=== PATIENT | male | born 1970 | race American Indian/Alaskan Native ===

== ENCOUNTER 2017-12-25 06:50 | Emergency (ER) | payer OTHER ==
[2017-12-25] MEDS ORDERED: VERSED IV NR (07:00)
[2017-12-25] MEDS ORDERED: QUELICIN IV ONE (07:00)
[2017-12-25] MEDS ORDERED: DIPRIVAN 10 MG/ML 1,000 MG/100 ML BOTTLE IV ONE (07:07)
[2017-12-25] MEDS ORDERED: VASELINE LIP THERAPY TP PRN (07:10)
[2017-12-25] MEDS ORDERED: ARTIFICIAL TEARS OPHTH OINT OU PRN (07:10)
--- NOTE | 2017-12-25 07:12 | Emergency Department Report ---
ED Altered Mental Status HPI - General Stated Complaint: N/V Time Seen by Provider: 12/25/17 06:50 Source: EMS Limitations: Altered Mental Status - History of Present Illness Initial Comments: Patient 47-year-old male that originally presented to the emergency room for nausea and vomiting. After arrival by EMS prior to being put in a room patient became unresponsive. Patient was taken to room 22 and intubated. Per EMS complaints the patient had were nausea and vomiting and dizziness. MD Complaint: altered mental status, decreased responsiveness -: Sudden Severity: severe Consistency of Symptoms: constant Associated Symptoms: nausea/vomiting, other (dizziness) Treatments Prior to Arrival: oxygen - Related Data Allergies Allergy/AdvReac Type Severity Reaction Status Date / Time No Known Allergies Allergy Unverified 12/25/17 06:59 ED Review of Systems ROS: Stated complaint: N/V Other details as noted in HPI Comment: Unobtainable due to pts medical conditions ED Past Medical Hx - Past Medical History Previous Medical History?: Yes Hx Hypertension: Yes - Surgical History Past Surgical History?: No - Family History Family history: no significant - Social History Smoking Status: Unknown if ever smoked Substance Use Type: None ED Physical Exam - General Limitations: Altered Mental Status General appearance: lethargic - Head Head exam: Present: atraumatic, normocephalic - Eye Eye exam: Present: normal appearance, PERRL Pupils: Present: normal accommodation - ENT ENT exam: Present: mucous membranes dry - Neck Neck exam: Present: normal inspection - Respiratory Respiratory exam: Present: normal lung sounds bilaterally. Absent: respiratory distress - Cardiovascular Cardiovascular Exam: Present: regular rate, normal rhythm. Absent: systolic murmur, diastolic murmur, rubs, gallop - GI/Abdominal GI/Abdominal exam: Present: soft, normal bowel sounds - Rectal Rectal exam: Present: deferred - Extremities Exam Extremities exam: Present: normal inspection - Back Exam Back exam: Present: normal inspection - Neurological Exam Neurological exam: Present: altered - Skin Skin exam: Present: warm, dry, intact, normal color. Absent: rash - Assessment Assessment Interval: Baseline - Level of Consciousness 1a. Level of Consciousness: responds reflex/autonomic - LOC Questions 1b. LOC Questions: answers no questions correctly - LOC Command 1c. LOC Commands: performs no tasks correctly - Best Gaze 2. Best Gaze: forced deviation - Visual 3. Visual: bilateral hemianopia - Facial Palsy 4. Facial Palsy: complete paralysis - Motor Arm 5b. Motor Arm Right: no movement 5a. Motor Arm Left: no movement - Motor Leg 6a. Motor Leg Left: no movement 6b. Motor Leg Right: no movement - Limb Ataxia 7. Limb Ataxia: absent - Sensory 8. Sensory: severe/total sensory loss - Best Language 9. Best Language: mute/global aphasia - Dysarthria 10. Dysarthria: intubated or other barrier - Extinction and Inattention 11. Extinction/Inattention: profound inattention (no score calculated but is high score.) ED Course Vital Signs 12/25/17 12/25/17 12/25/17 06:50 06:52 07:00 Pulse Rate 40 L 48 L 128 H Respiratory 16 40 H Rate Blood Pressure 167/93 165/82 O2 Sat by Pulse 100 100 Oximetry 12/25/17 12/25/17 12/25/17 07:10 07:16 07:35 Pulse Rate 89 80 83 Respiratory 17 17 Rate Blood Pressure 64/37 115/73 O2 Sat by Pulse 98 98 99 Oximetry 12/25/17 12/25/17 12/25/17 07:45 08:09 08:15 Pulse Rate 85 82 74 Respiratory 18 15 16 Rate Blood Pressure 122/75 140/91 108/72 O2 Sat by Pulse 100 100 100 Oximetry 12/25/17 12/25/17 12/25/17 08:30 08:45 09:00 Pulse Rate 74 81 77 Respiratory 18 22 9 L Rate Blood Pressure 121/79 157/100 166/101 O2 Sat by Pulse 100 100 100 Oximetry 12/25/17 12/25/17 12/25/17 09:15 09:30 09:45 Pulse Rate 72 67 58 L Respiratory 22 22 22 Rate Blood Pressure 129/88 126/85 130/82 O2 Sat by Pulse 100 100 100 Oximetry 12/25/17 12/25/17 12/25/17 10:00 10:31 10:45 Pulse Rate 55 L 71 61 Respiratory 22 Rate Blood Pressure 134/85 139/84 O2 Sat by Pulse 100 100 Oximetry 12/25/17 12/25/17 12/25/17 11:00 11:15 11:30 Pulse Rate 53 L 53 L 54 L Respiratory 19 22 Rate Blood Pressure 130/80 130/82 127/82 O2 Sat by Pulse 100 100 100 Oximetry 12/25/17 12/25/17 12/25/17 11:45 12:00 12:15 Pulse Rate 54 L 53 L 52 L Respiratory 22 22 22 Rate Blood Pressure 127/83 126/81 126/82 O2 Sat by Pulse 100 100 100 Oximetry 12/25/17 12/25/17 12/25/17 12:30 12:45 13:17 Pulse Rate 52 L 51 L 55 L Respiratory 22 22 22 Rate Blood Pressure 132/84 130/85 138/90 O2 Sat by Pulse 100 100 100 Oximetry 12/25/17 12/25/17 12/25/17 13:30 13:45 14:00 Pulse Rate 54 L 54 L 56 L Respiratory 22 22 21 Rate Blood Pressure 132/86 121/80 123/87 O2 Sat by Pulse 100 100 100 Oximetry - Reevaluation(s) Reevaluation #1: Patient noted to be hypoxic and not responsive. Patient not responding to painful stimuli. We'll intubate patient to protect airway. 12/25/17 06:50 Reevaluation #2: Patient noted to be hypotensive. We'll start bolus of fluid and Levothroid drip 12/25/17 07:20 Reevaluation #3: Discussed case with Dr. Sebastian an EKG sent to him, he states this is not a STEMI. 12/25/17 07:22 Reevaluation #4: Patient is stable at this time on a ventilator. Blood pressure is better and is currently on Levophed drip. Lactic acid elevated, we'll give the patient antibiotics and boluses of fluid 12/25/17 08:31 Patient's blood pressure improving. Patient's heart rate is improving. Patient is intubated. we'll start neurovascular workup. Will order CTA scan 0900 - Consultations Consultation #1: [place] neurosurgeon consulted along with neuro ICU and stroke team. 12/25/17 11:[address] Mckinney. Dr. Mckinney was going to review images and give us a call back. 12/25/17 12:36 Dr. Mckinney wants another CT of brain to verify if the patient has infarct his brainstem 12/25/17 12:58 Dr Mckinney accepted patient. Patient to be transferred to [facility] for thrombectomy. [facility] is sending the helicopter to pick patient up. 08/16/18 13:41 - Intubation Time Out Performed: Yes Sedative: Etomidate Paralytic: Succinylcholine Laryngoscope: fiberoptic video scope Size: 4 Assist Device Used: fiberoptic device ET Tube Size: 7.5 Tube Secured Depth (cm): 24 Tube Secured Location: teeth Tube Placement Confirmation: visualized tube passing t, equal breath sounds bilat, no breath sounds over epi, confirmation by capnometr Patient Tolerated Procedure: well Intubation Complications: none - Lab Data Result diagrams: 12/25/17 07:10 12/25/17 07:16 Lab Results 12/25/17 12/25/17 12/25/17 Range/Units 07:10 07:10 07:10 WBC 12.0 H (4.5-11.0) K/mm3 RBC 5.01 (3.65-5.03) M/mm3 Hgb 13.7 (11.8-15.2) gm/dl Hct 43.6 (35.5-45.6) % MCV 87 (84-94) fl MCH 27 L (28-32) pg MCHC 32 (32-34) % RDW 13.7 (13.2-15.2) % Plt Count 263 (140-440) K/mm3 Lymph % (Auto) 23.7 (13.4-35.0) % Russell % (Auto) 6.4 (0.0-7.3) % Eos % (Auto) 0.6 (0.0-4.3) % Baso % (Auto) 0.3 (0.0-1.8) % Lymph # 2.8 (1.2-5.4) K/mm3 Russell # 0.8 (0.0-0.8) K/mm3 Eos # 0.1 (0.0-0.4) K/mm3 Baso # 0.0 (0.0-0.1) K/mm3 Seg Neutrophils % 69.0 (40.0-70.0) % Seg Neutrophils # 8.3 H (1.8-7.7) K/mm3 PT 13.3 (12.2-14.9) Sec. INR 0.96 (0.87-1.13) APTT 22.6 L (24.2-36.6) Sec. Thrombin Time (15.1-19.6) Sec. POC ABG pH (7.35-7.45) POC ABG pCO2 (35-45) POC ABG pO2 (80-105) POC ABG HCO3 POC ABG Total CO2 POC ABG O2 Sat POC ABG Base Excess FiO2 % Sodium (137-145) mmol/L Potassium (3.6-5.0) mmol/L Chloride (98-107) mmol/L Carbon Dioxide (22-30) mmol/L Anion Gap mmol/L BUN (9-20) mg/dL Creatinine (0.8-1.5) mg/dL Estimated GFR ml/min BUN/Creatinine Ratio % Glucose (75-100) mg/dL Lactic Acid (0.7-2.0) mmol/L Calcium (8.4-10.2) mg/dL Total Bilirubin (0.1-1.2) mg/dL AST (5-40) units/L ALT (7-56) units/L Alkaline Phosphatase (35-129) units/L Troponin T (0.00-0.029) ng/mL Total Protein (6.3-8.2) g/dL Albumin (3.9-5) g/dL Albumin/Globulin Ratio % TSH (0.270-4.200) mlU/mL Urine Color (Yellow) Urine Turbidity (Clear) Urine pH (5.0-7.0) Ur Specific [place] (1.003-1.030) Urine Protein (Negative) mg/dL Urine Glucose (UA) (Negative) mg/dL Urine Ketones (Negative) mg/dL Urine Blood (Negative) Urine Nitrite (Negative) Urine Bilirubin (Negative) Urine Urobilinogen (<2.0) mg/dL Ur Leukocyte Esterase (Negative) Urine WBC (Auto) (0.0-6.0) /HPF Urine RBC (Auto) (0.0-6.0) /HPF U Epithel Cells (Auto) (0-13.0) /HPF Urine Bacteria (Auto) (Negative) /HPF Granular Casts /LPF Urine Mucus /HPF Urine Opiates Screen Urine Methadone Screen Ur Barbiturates Screen Ur Phencyclidine Scrn Ur Amphetamines Screen U Benzodiazepines Scrn Urine Cocaine Screen U Marijuana (THC) Screen Drugs of Abuse Note Plasma/Serum Alcohol < 0.01 (0-0.07) % 12/25/17 12/25/17 12/25/17 Range/Units 07:10 07:10 07:15 WBC (4.5-11.0) K/mm3 RBC (3.65-5.03) M/mm3 Hgb (11.8-15.2) gm/dl Hct (35.5-45.6) % MCV (84-94) fl MCH (28-32) pg MCHC (32-34) % RDW (13.2-15.2) % Plt Count (140-440) K/mm3 Lymph % (Auto) (13.4-35.0) % Russell % (Auto) (0.0-7.3) % Eos % (Auto) (0.0-4.3) % Baso % (Auto) (0.0-1.8) % Lymph # (1.2-5.4) K/mm3 Russell # (0.0-0.8) K/mm3 Eos # (0.0-0.4) K/mm3 Baso # (0.0-0.1) K/mm3 Seg Neutrophils % (40.0-70.0) % Seg Neutrophils # (1.8-7.7) K/mm3 PT (12.2-14.9) Sec. INR (0.87-1.13) APTT (24.2-36.6) Sec. Thrombin Time 16.8 (15.1-19.6) Sec. POC ABG pH (7.35-7.45) POC ABG pCO2 (35-45) POC ABG pO2 (80-105) POC ABG HCO3 POC ABG Total CO2 POC ABG O2 Sat POC ABG Base Excess FiO2 % Sodium (137-145) mmol/L Potassium (3.6-5.0) mmol/L Chloride (98-107) mmol/L Carbon Dioxide (22-30) mmol/L Anion Gap mmol/L BUN (9-20) mg/dL Creatinine (0.8-1.5) mg/dL Estimated GFR ml/min BUN/Creatinine Ratio % Glucose (75-100) mg/dL Lactic Acid 6.80 H* (0.7-2.0) mmol/L Calcium (8.4-10.2) mg/dL Total Bilirubin (0.1-1.2) mg/dL AST (5-40) units/L ALT (7-56) units/L Alkaline Phosphatase (35-129) units/L Troponin T (0.00-0.029) ng/mL Total Protein (6.3-8.2) g/dL Albumin (3.9-5) g/dL Albumin/Globulin Ratio % TSH 1.090 (0.270-4.200) mlU/mL Urine Color (Yellow) Urine Turbidity (Clear) Urine pH (5.0-7.0) Ur Specific [place] (1.003-1.030) Urine Protein (Negative) mg/dL Urine Glucose (UA) (Negative) mg/dL Urine Ketones (Negative) mg/dL Urine Blood (Negative) Urine Nitrite (Negative) Urine Bilirubin (Negative) Urine Urobilinogen (<2.0) mg/dL Ur Leukocyte Esterase (Negative) Urine WBC (Auto) (0.0-6.0) /HPF Urine RBC (Auto) (0.0-6.0) /HPF U Epithel Cells (Auto) (0-13.0) /HPF Urine Bacteria (Auto) (Negative) /HPF Granular Casts /LPF Urine Mucus /HPF Urine Opiates Screen Urine Methadone Screen Ur Barbiturates Screen Ur Phencyclidine Scrn Ur Amphetamines Screen U Benzodiazepines Scrn Urine Cocaine Screen U Marijuana (THC) Screen Drugs of Abuse Note Plasma/Serum Alcohol (0-0.07) % 12/25/17 12/25/17 12/25/17 Range/Units 07:16 07:58 07:58 WBC (4.5-11.0) K/mm3 RBC (3.65-5.03) M/mm3 Hgb (11.8-15.2) gm/dl Hct (35.5-45.6) % MCV (84-94) fl MCH (28-32) pg MCHC (32-34) % RDW (13.2-15.2) % Plt Count (140-440) K/mm3 Lymph % (Auto) (13.4-35.0) % Russell % (Auto) (0.0-7.3) % Eos % (Auto) (0.0-4.3) % Baso % (Auto) (0.0-1.8) % Lymph # (1.2-5.4) K/mm3 Russell # (0.0-0.8) K/mm3 Eos # (0.0-0.4) K/mm3 Baso # (0.0-0.1) K/mm3 Seg Neutrophils % (40.0-70.0) % Seg Neutrophils # (1.8-7.7) K/mm3 PT (12.2-14.9) Sec. INR (0.87-1.13) APTT (24.2-36.6) Sec. Thrombin Time (15.1-19.6) Sec. POC ABG pH (7.35-7.45) POC ABG pCO2 (35-45) POC ABG pO2 (80-105) POC ABG HCO3 POC ABG Total CO2 POC ABG O2 Sat POC ABG Base Excess FiO2 % Sodium 138 (137-145) mmol/L Potassium 4.1 (3.6-5.0) mmol/L Chloride 105.1 (98-107) mmol/L Carbon Dioxide 17 L (22-30) mmol/L Anion Gap 20 mmol/L BUN 20 (9-20) mg/dL Creatinine 1.3 (0.8-1.5) mg/dL Estimated GFR > 60 ml/min BUN/Creatinine Ratio 15 % Glucose 269 H (75-100) mg/dL Lactic Acid (0.7-2.0) mmol/L Calcium 8.9 (8.4-10.2) mg/dL Total Bilirubin 0.60 (0.1-1.2) mg/dL AST 23 (5-40) units/L ALT 15 (7-56) units/L Alkaline Phosphatase 78 (35-129) units/L Troponin T < 0.010 (0.00-0.029) ng/mL Total Protein 7.2 (6.3-8.2) g/dL Albumin 4.2 (3.9-5) g/dL Albumin/Globulin Ratio 1.4 % TSH (0.270-4.200) mlU/mL Urine Color Yellow (Yellow) Urine Turbidity Slightly-cloudy (Clear) Urine pH 5.0 (5.0-7.0) Ur Specific [place] 1.021 (1.003-1.030) Urine Protein 100 mg/dl (Negative) mg/dL Urine Glucose (UA) Neg (Negative) mg/dL Urine Ketones Neg (Negative) mg/dL Urine Blood Sm (Negative) Urine Nitrite Neg (Negative) Urine Bilirubin Neg (Negative) Urine Urobilinogen 4.0 (<2.0) mg/dL Ur Leukocyte Esterase Neg (Negative) Urine WBC (Auto) 6.0 (0.0-6.0) /HPF Urine RBC (Auto) 10.0 (0.0-6.0) /HPF U Epithel Cells (Auto) 1.0 (0-13.0) /HPF Urine Bacteria (Auto) 2+ (Negative) /HPF Granular Casts 3 /LPF Urine Mucus 2+ /HPF Urine Opiates Screen Presumptive negative Urine Methadone Screen Presumptive negative Ur Barbiturates Screen Presumptive negative Ur Phencyclidine Scrn Presumptive negative Ur Amphetamines Screen Presumptive negative U Benzodiazepines Scrn Presumptive positive Urine Cocaine Screen Presumptive negative U Marijuana (THC) Screen Presumptive negative Drugs of Abuse Note Disclamer Plasma/Serum Alcohol (0-0.07) % 12/25/17 12/25/17 Range/Units 08:06 08:19 WBC (4.5-11.0) K/mm3 RBC (3.65-5.03) M/mm3 Hgb (11.8-15.2) gm/dl Hct (35.5-45.6) % MCV (84-94) fl MCH (28-32) pg MCHC (32-34) % RDW (13.2-15.2) % Plt Count (140-440) K/mm3 Lymph % (Auto) (13.4-35.0) % Russell % (Auto) (0.0-7.3) % Eos % (Auto) (0.0-4.3) % Baso % (Auto) (0.0-1.8) % Lymph # (1.2-5.4) K/mm3 Russell # (0.0-0.8) K/mm3 Eos # (0.0-0.4) K/mm3 Baso # (0.0-0.1) K/mm3 Seg Neutrophils % (40.0-70.0) % Seg Neutrophils # (1.8-7.7) K/mm3 PT (12.2-14.9) Sec. INR (0.87-1.13) APTT (24.2-36.6) Sec. Thrombin Time (15.1-19.6) Sec. POC ABG pH 7.208 L (7.35-7.45) POC ABG pCO2 58.4 H (35-45) POC ABG pO2 225 H (80-105) POC ABG HCO3 23.2 POC ABG Total CO2 25 POC ABG O2 Sat 100 POC ABG Base Excess -5 FiO2 50 % Sodium (137-145) mmol/L Potassium (3.6-5.0) mmol/L Chloride (98-107) mmol/L Carbon Dioxide (22-30) mmol/L Anion Gap mmol/L BUN (9-20) mg/dL Creatinine (0.8-1.5) mg/dL Estimated GFR ml/min BUN/Creatinine Ratio % Glucose (75-100) mg/dL Lactic Acid 1.70 (0.7-2.0) mmol/L Calcium (8.4-10.2) mg/dL Total Bilirubin (0.1-1.2) mg/dL AST (5-40) units/L ALT (7-56) units/L Alkaline Phosphatase (35-129) units/L Troponin T (0.00-0.029) ng/mL Total Protein (6.3-8.2) g/dL Albumin (3.9-5) g/dL Albumin/Globulin Ratio % TSH (0.270-4.200) mlU/mL Urine Color (Yellow) Urine Turbidity (Clear) Urine pH (5.0-7.0) Ur Specific [place] (1.003-1.030) Urine Protein (Negative) mg/dL Urine Glucose (UA) (Negative) mg/dL Urine Ketones (Negative) mg/dL Urine Blood (Negative) Urine Nitrite (Negative) Urine Bilirubin (Negative) Urine Urobilinogen (<2.0) mg/dL Ur Leukocyte Esterase (Negative) Urine WBC (Auto) (0.0-6.0) /HPF Urine RBC (Auto) (0.0-6.0) /HPF U Epithel Cells (Auto) (0-13.0) /HPF Urine Bacteria (Auto) (Negative) /HPF Granular Casts /LPF Urine Mucus /HPF Urine Opiates Screen Urine Methadone Screen Ur Barbiturates Screen Ur Phencyclidine Scrn Ur Amphetamines Screen U Benzodiazepines Scrn Urine Cocaine Screen U Marijuana (THC) Screen Drugs of Abuse Note Plasma/Serum Alcohol (0-0.07) % - EKG Data -: EKG Interpreted by Me EKG shows normal: sinus rhythm, axis, intervals, QRS complexes, ST-T waves Rate: bradycardia - Radiology Data Radiology results: report reviewed CT HEAD WITHOUT CONTRAST: HISTORY: Neurological deficit. TECHNIQUE: Sequential 2.5mm CT images. COMPARISON: none. FINDINGS: Cerebral Parenchyma: Within normal limits. Cerebellum: Within normal limits. Brainstem: Within normal limits. Ventricles: Normal. Sella: Normal. Extra-axial spaces: Normal. Basal Cisterns: Normal. Intracranial Hemorrhage: None. Midline Shift: None. Calvarium: Normal. Sinuses: Normal. Mastoid Air Cells: Normal. Visualized Orbits: Normal. IMPRESSION: Cranial CT scan within normal limits. These findings were discussed with Dr. Saunders in the emergency department at 0813 hours. Transcribed By: TTR Dictated By: AKHIL SHELL JR, MD Electronically Authenticated By: AKHIL SHELL JR, MD Signed Date/Time: 12/25/17 0813 CTA NECK: CTA HEAD: HISTORY: Altered mental status, unresponsive. TECHNIQUE: Helical CT following IV contrast. Sagittal and coronal reformatted images. 3D volume rendering technique. Stenosis was calculated using NASCET criteria. 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 The right vertebral artery is patent with less than 20% stenosis. The visualized aortic arch, innominate artery and proximal bilateral subclavian arteries are widely patent with less than 20% stenosis. Within the right carotid system: Less than 20% stenosis. Within the left carotid system: Less than 20% stenosis. The anterior cerebral arteries, middle cerebral arteries and posterior cerebral arteries are patent with less than 20% stenosis. No evidence for aneurysm. 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 Underlying left vertebral artery dissection with thrombosis is difficult to exclude. These findings were discussed with Dr. Saunders in the emergency department at 1130 hrs. Transcribed By: TTR Dictated By: AKHIL SHELL JR, MD Electronically Authenticated By: AKHIL SHELL JR, MD Signed Date/Time: 12/25/17 1146 EXAM: XR CHEST 1V AP HISTORY: neuro deficit COMPARISONS: None. FINDINGS: AP portable chest radiograph Endotracheal tube terminates approximately 7 cm from the fani. Enteric tube terminates in the left upper quadrant. No pneumothorax, effusion, or focal airspace disease. No acute skeletal finding. IMPRESSION: Satisfactory appearance of patient's support apparatus without pneumothorax. Transcribed By: MB Dictated By: STEPHANE ADAME MD Electronically Authenticated By: STEPHANE ADAME MD Signed Date/Time: 12/25/17 0721 - Medical Decision Making Patient is a 47-year-old male that presents emergency room with nausea and vomiting and dizziness. Upon arrival patient became unresponsive and hypotensive and hypoxia. Patient was intubated and stabilized with drips and fluids. The Levophed drip has since been turned off. Patient will be transferred to the neurovascular ICU and in the [facility]. - Differential Diagnosis cva. n/v dizziness. elect imbalance. hypoxia Critical Care Time: Yes Critical care attestation.: If time is entered above; I have spent that time in minutes in the direct care of this critically ill patient, excluding procedure time. Critical Care Time: 75 minutes for cc time ED Disposition Clinical Impression: Unresponsive, Hypoxia, Respiratory acidosis, Lactic acidosis CVA (cerebral vascular accident) Qualifiers: CVA mechanism: occlusion Precerebral and cerebral artery: basilar artery Qualified Code(s): I63.22 - Cerebral infarction due to unspecified occlusion or stenosis of basilar artery Respiratory failure Qualifiers: Chronicity: acute Respiratory failure complication: hypoxia Qualified Code(s): J96.01 - Acute respiratory failure with hypoxia Disposition: DC/TX-70 ANOTHER TYPE HLTHCARE Is pt being admited?: No Does the pt Need Aspirin: No Condition: Critical Time of Disposition: 13:51
[2017-12-25] MEDS ORDERED: LEVOPHED DRIP 4 MG/NS 250 ML 4 MG/250 ML BAG IV ONE (07:17)
[2017-12-25] MEDS ORDERED: NACL 0.9% 1000 ML 1,000 ML ONE (07:17)
[2017-12-25] MEDS ORDERED: NACL 0.9% 1000 ML 1,000 ML IV ONE ×2 (07:28→08:29)
[2017-12-25] MEDS ORDERED: LEVOPHED DRIP 4 MG/NS 250 ML 4 MG/250 ML BAG IV SCH (07:28)
--- NOTE | 2017-12-25 07:29 | XRay Report ---
FINAL REPORT EXAM: XR CHEST 1V AP HISTORY: neuro deficit COMPARISONS: None. FINDINGS: AP portable chest radiograph Endotracheal tube terminates approximately 7 cm from the fani. Enteric tube terminates in the left upper quadrant. No pneumothorax, effusion, or focal airspace disease. No acute skeletal finding. IMPRESSION: Satisfactory appearance of patient's support apparatus without pneumothorax.
--- NOTE | 2017-12-25 07:30 | XRay Report ---
FINAL REPORT EXAM: XR ABDOMEN 1V AP HISTORY: NG tube insertion COMPARISONS: Chest radiograph of the same date FINDINGS: AP portable upper abdominal radiograph Enteric tube terminates in the left upper quadrant with distal side port well below the gastroesophageal junction. No pneumoperitoneum. Partially imaged bowel gas pattern is nonobstructive. IMPRESSION: Nasogastric tube terminates in the region of the stomach with distal side port well below the gastroesophageal junction.
[2017-12-25] MEDS ORDERED: ASPIRIN PR ONE (07:34)
[2017-12-25 07:42] LABS: Basophils % (Auto) 0.3 % (0.0-1.8); Eosinophils # (Auto) 0.1 K/mm3 (0.0-0.4); Eosinophils % (Auto) 0.6 % (0.0-4.3); Hematocrit 43.6 % (35.5-45.6); Hemoglobin 13.7 gm/dl (11.8-15.2); Lymphocytes # (Auto) 2.8 K/mm3 (1.2-5.4); Lymphocytes % (Auto) 23.7 % (13.4-35.0); Mean Corpuscular HGB Conc 32 % (32-34); Mean Corpuscular Hemoglobin 27 pg (28-32); Mean Corpuscular Volume 87 fl (84-94); Monocytes # (Auto) 0.8 K/mm3 (0.0-0.8); Monocytes % (Auto) 6.4 % (0.0-7.3); Platelet Count 263 K/mm3 (140-440); Red Blood Count 5.01 M/mm3 (3.65-5.03); Red Cell Distribution Width 13.7 % (13.2-15.2)
[2017-12-25 07:57] LABS: Alanine Aminotransferase 15 units/L (7-56); Albumin 4.2 g/dL (3.9-5); BUN/Creatinine Ratio 15; Blood Urea Nitrogen 20 mg/dL (9-20); Calcium 8.9 mg/dL (8.4-10.2); Hemolysis Index 58
[2017-12-25 08:00] LABS: INR 0.96 (0.87-1.13); Partial Thromboplastin Time 22.6 Sec. (24.2-36.6)
[2017-12-25] MEDS ORDERED: NACL 0.9% 500 ML IV SCH (08:00)
[2017-12-25] MEDS ORDERED: DIPRIVAN 10 MG/ML 1,000 MG/100 ML BOTTLE IV SCH (08:00)
--- NOTE | 2017-12-25 08:19 | Cat Scan Report ---
CT HEAD WITHOUT CONTRAST: HISTORY: Neurological deficit. TECHNIQUE: Sequential 2.5mm CT images. COMPARISON: none. FINDINGS: Cerebral Parenchyma: Within normal limits. Cerebellum: Within normal limits. Brainstem: Within normal limits. Ventricles: Normal. Sella: Normal. Extra-axial spaces: Normal. Basal Cisterns: Normal. Intracranial Hemorrhage: None. Midline Shift: None. Calvarium: Normal. Sinuses: Normal. Mastoid Air Cells: Normal. Visualized Orbits: Normal. IMPRESSION: Cranial CT scan within normal limits. These findings were discussed with Dr. Saunders in the emergency department at 0813 hours.
[2017-12-25 08:39] LABS: Bacteria,Urine 2+ /HPF (Negative); Bilirubin,Urine NEG (Negative); Blood,Urine SM (Negative); Color,Urine Yellow (Yellow); Granular Casts,Urine 3 /LPF; Mucus,Urine 2+ /HPF
[2017-12-25 08:40] LABS: Amphetamine Screen,Urine PRESUMPTIVE NEGATIVE; Cannabinoid Screen,Urine PRESUMPTIVE NEGATIVE; Cocaine Screen,Urine PRESUMPTIVE NEGATIVE; Methadone Screen,Urine PRESUMPTIVE NEGATIVE; Opiate Screen,Urine PRESUMPTIVE NEGATIVE
[2017-12-25 08:54] LABS: Benzodiazepines Screen,Urine PRESUMPTIVE POSITIVE
[2017-12-25] MEDS ORDERED: ZOSYN/NS 3.375GM/50ML 3.375 GM/50 ML BAG IV ONE (09:00)
[2017-12-25] MEDS ORDERED: AMIDATE IV ONE (11:41)
[2017-12-25] MEDS ORDERED: QUELICIN ONE (11:41)
[2017-12-25] MEDS ORDERED: VERSED IV ONE (11:41)
--- NOTE | 2017-12-25 11:52 | Cat Scan Report ---
CTA NECK: CTA HEAD: HISTORY: Altered mental status, unresponsive. TECHNIQUE: Helical CT following IV contrast. Sagittal and coronal reformatted images. 3D volume rendering technique. Stenosis was calculated using NASCET criteria. 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 The right vertebral artery is patent with less than 20% stenosis. The visualized aortic arch, innominate artery and proximal bilateral subclavian arteries are widely patent with less than 20% stenosis. Within the right carotid system: Less than 20% stenosis. Within the left carotid system: Less than 20% stenosis. The anterior cerebral arteries, middle cerebral arteries and posterior cerebral arteries are patent with less than 20% stenosis. No evidence for aneurysm. 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 Underlying left vertebral artery dissection with thrombosis is difficult to exclude. These findings were discussed with Dr. Saunders in the emergency department at 1130 hrs.
--- NOTE | 2017-12-25 13:26 | Cat Scan Report ---
CT HEAD WITHOUT CONTRAST: HISTORY: CVA. TECHNIQUE: Sequential 2.5mm CT images. COMPARISON: 12/25/17 at 0803 hrs.. FINDINGS: Cerebral Parenchyma: Subtle areas of diminished attenuation have developed throughout the brainstem and inferior cerebellum bilaterally consistent with an evolving ischemic infarct. Hyperdensity in the distal left vertebral artery and basilar artery are identified consistent with thrombosis. There is no evidence for mass effect the fourth ventricle. The supratentorial compartment remains unremarkable. Ventricles: Normal. Sella: Normal. Extra-axial spaces: Normal. Basal Cisterns: Normal. Intracranial Hemorrhage: None. Midline Shift: None. Calvarium: Normal. Sinuses: Normal. Mastoid Air Cells: Normal. Visualized Orbits: Normal. IMPRESSION: Evolving posterior fossa ischemic infarct. No evidence for hemorrhage.
[2017-12-25 14:30] VITALS: BP 123/87
== END 2017-12-25 14:32 | disposition other institution (70) ==
LOC: ED 06:50
DX: I63.22 Cerebral infarction due to unspecified occlusion or stenosis of basilar artery (principal); J96.01 Acute respiratory failure with hypoxia; R09.02 Hypoxemia; E87.2 Acidosis; I10 Essential (primary) hypertension
CPT/HCPCS: 31500; 36415; 51702; 70450; 70496; 70498; 71045; 74018; 80053; 80307; 81001; 82140; 82803; 82962; 84443; 84484; 85025; 85610; 85670; 85730; 87040; 87070; 87205; 93005; 93010; 96361; 96365; 96366; 96367; 96375; 99291; 99292; G0480; J0330; J2250; J2543; J2704; J7030; J7040; Q9967; 80320; 94002